=== PATIENT | male | born 1990 | race Asian ===

== ENCOUNTER 2021-05-15 09:12 | Inpatient (IN) | payer MEDICAID ==
[~2021-05-15] VITALS: Ht 170.2 cm; Wt 81.6 kg
[2021-05-16] MEDS ORDERED: LORazepam 2 MG TABLET PO PRN (11:15)
[2021-05-16] MEDS ORDERED: HALOPERIDOL 5 MG TABLET PO PRN (11:15)
[2021-05-16 12:10] VITALS: BP 131/88
[2021-05-16] MEDS: SERTRALINE HCL 50 MG TABLET PO SCH (13:09)
[2021-05-16 16:18] VITALS: BP 133/85
[2021-05-17 00:46] VITALS: BP 126/71
[2021-05-17 04:23] VITALS: BP 133/84
[2021-05-17 07:25] LABS: BASOPHILS % (AUTO) 1.1 % (0.0-2.0); EOSINOPHILS % (AUTO) 2.7 % (1.0-6.0); HEMATOCRIT 46.4 % (41-53); HEMOGLOBIN 15.5 g/dL (13.5-17.5); LYMPHOCYTES # (AUTO) 1.6 K/uL (1.0-4.8); MEAN CORPUSCULAR HEMOGLOBIN 28.5 pg (26.0-34.0); MEAN CORPUSCULAR HGB CONC 33.4 G/dL (31.0-37.0); MEAN CORPUSCULAR VOLUME 85 fL (80-100); MONOCYTES # (AUTO) 0.6 K/uL (0.1-1.0); MONOCYTES % (AUTO) 8.1 % (2.0-9.0); NEUTROPHILS # (AUTO) 5.5 K/uL (1.8-7.7); NEUTROPHILS % (AUTO) 68.1 % (40.0-70.0); PLATELET COUNT (AUTO) 320 K/uL (150-450); RED BLOOD CELL COUNT(AUTO) 5.45 MIL/uL (4.50-5.90); RED CELL DISTRIBUTION WIDTH 13.5 % (11.5-14.5)
[2021-05-17 07:42] LABS: HEMOGLOBIN A1C 5.5 % (3.8-5.6)
[2021-05-17 07:50] LABS: ALANINE AMINOTRANSFERASE 50 U/L (12-78); ALBUMIN 3.6 g/dL (3.4-5.0); ALKALINE PHOSPHATASE 129 U/L (46-116); ANION GAP 11 mmol/L (8-16); ASPARTATE AMINOTRANSFERASE 36 U/L (15-37); BILIRUBIN,TOTAL 0.2 mg/dL (0.1-1.0); CALCIUM, TOTAL 8.4 mg/dL (8.8-10.5); CARBON DIOXIDE 27 mmol/L (22-29); CHLORIDE 106 mmol/L (98-107); CHOLESTEROL 162 mg/dL (131-200); CREATININE 0.82 mg/dL (0.60-1.30); FREE T4 (FREE THYROXINE) 1.12 ng/dL (0.76-1.46); GLOMERULAR FILTR. RATE CALC > 60 mL/min (>60); GLUCOSE,RANDOM 98 mg/dL (70-110); HDL CHOLESTEROL 41 mg/dL (40-60); LDL CHOL (CALC.) 107 mg/dL (0-130); POTASSIUM 3.6 mmol/L (3.5-5.1); SODIUM SERUM 144 mmol/L (136-145); THYROID STIMULATING HORMONE 0.91 uIU/mL (0.36-3.74); TOTAL PROTEIN, SERUM 7.5 g/dL (6.4-8.2); TRIGLYCERIDES 71 mg/dL (15-150); UREA NITROGEN, BLOOD 9 mg/dL (7-18)
[2021-05-17 08:25] VITALS: BP 149/81
[2021-05-17] MEDS: SERTRALINE HCL 50 MG TABLET PO SCH (09:13)
[2021-05-17 15:51] LABS: APPEARANCE,URINE CLEAR (CLEAR); BILIRUBIN,URINE NEGATIVE (NEGATIVE); GLUCOSE, URINE (UA) 100 mg/dL (NEGATIVE); KETONES,URINE NEGATIVE (NEGATIVE); LEUKOCYTE ESTERASE ,URINE NEGATIVE (NEGATIVE); NITRATE,URINE NEGATIVE (NEGATIVE); OCCULT BLOOD,URINE NEGATIVE (NEGATIVE); PROTEIN,URINE NEGATIVE (NEGATIVE); UROBILINOGEN,URINE 0.2 mg/dL (<=1.0)
[2021-05-17 15:57] LABS: AMPHET/METH SCREEN,URINE NEGATIVE (NEGATIVE); BARBITURATE SCREEN, URINE NEGATIVE (NEGATIVE); BENZODIAZEPINES SCREEN,URINE NEGATIVE (NEGATIVE); CANNABINOID SCREEN,URINE NEGATIVE (NEGATIVE); COCAINE SCREEN,URINE NEGATIVE (NEGATIVE); METHADONE SCREEN, URINE NEGATIVE (NEGATIVE); OPIATE SCREEN,URINE NEGATIVE (NEGATIVE); PHENCYCLIDINE SCREEN,URINE NEGATIVE (NEGATIVE)
[2021-05-17 16:01] LABS: BACTERIA,URINE None Seen /HPF (None Seen); RBC,URINE None Seen /HPF (0-2); WBC,URINE None Seen /HPF (0-5)
[2021-05-17 16:02] LABS: SQUAMOUS EPITHELIAL CELL,UR Rare /LPF (None Seen)
[2021-05-17 16:11] VITALS: BP 141/83
[2021-05-17] MEDS: ZOLPIDEM TARTRATE 10 MG TABLET PO PRN (20:37)
[2021-05-18 05:40] VITALS: BP 140/91
[2021-05-18 08:23] VITALS: BP 140/86
[2021-05-18] MEDS: SERTRALINE HCL 50 MG TABLET PO SCH (08:53)
[2021-05-18 16:18] VITALS: BP 136/82
[2021-05-18] MEDS: ZOLPIDEM TARTRATE 10 MG TABLET PO PRN (20:41)
[2021-05-19 01:39] VITALS: BP 134/79
[2021-05-19 08:35] VITALS: BP 140/89
[2021-05-19] MEDS: SERTRALINE HCL 50 MG TABLET PO SCH (08:50)
[2021-05-19 16:25] VITALS: BP 140/84
[2021-05-19] MEDS: ZOLPIDEM TARTRATE 10 MG TABLET PO PRN (20:57)
[2021-05-20 01:14] VITALS: BP 106/68
[2021-05-20 08:25] VITALS: BP 143/91
[2021-05-20] MEDS: SERTRALINE HCL 50 MG TABLET PO SCH (08:51)
[2021-05-20 16:06] VITALS: BP 130/86
[2021-05-20] MEDS: ZOLPIDEM TARTRATE 10 MG TABLET PO PRN (20:27)
[2021-05-21 02:28] VITALS: BP 134/78
[2021-05-21 08:23] VITALS: BP 138/90
[2021-05-21] MEDS: SERTRALINE HCL 50 MG TABLET PO SCH (09:16)
[2021-05-21] MEDS ORDERED: SERT-439 PO (09:20)
== END 2021-05-21 14:12 | disposition home or self-care (01) | DRG 754 ==
LOC: B2S 05-16 12:00
DX: F32.9 Major depressive disorder, single episode, unspecified (principal); R09.01 Asphyxia; R45.851 Suicidal ideations; K59.00 Constipation, unspecified; Z79.899 Other long term (current) drug therapy; R00.0 Tachycardia, unspecified; R03.0 Elevated blood-pressure reading, without diagnosis of hypertension; X83.8XXA Intentional self-harm by other specified means, initial encounter; Y93.89 Activity, other specified; Y92.89 Other specified places as the place of occurrence of the external cause; Y99.8 Other external cause status
CPT/HCPCS: 80053; 80061; 80307; 81001; 83036; 84439; 84443; 85025; 86592